=== PATIENT | female | born 1950 | race Caucasian/White ===

== ENCOUNTER 2016-10-28 20:31 | Inpatient (IN) | payer MEDICARE, OTHER ==
[2016-10-28] MEDS ORDERED: NORMAL SALINE 1000 ML 1,000 ML IV ONE (20:39)
[2016-10-28] MEDS ORDERED: CEFEPIME 2 GM/D5W RTU 50 ML IV ONE (20:39)
--- NOTE | 2016-10-28 20:56 | ER Document Report ---
ED General - General Stated Complaint: CONFUSION Time Seen by Provider: 10/28/16 20:38 Notes: Patient is a 65-year-old female with past medical history of hypertension, hyperlipidemia, diabetes, rheumatoid arthritis apparently noncompliant with all medications who presents with altered mental status, fever and tachycardia. Her found patient slumped next to the toilet still conscious but very confused. Patient states that she became lightheaded and sat down on the floor as she is concerned she was going to pass out. Per EMS initially the patient had a GCS of 14, seemed significantly altered oriented only to person. This improved after administration of IV fluids and antipyretics. Patient also apparently had malodorous urine. She does have a history of similar presentations in the past with sepsis secondary to urinary tract infections. She has not seen her primary care doctor regarding today's concerns. She does not note that anything seems to improve or worsen her symptoms. TRAVEL OUTSIDE OF THE [place] IN LAST 30 DAYS: No - Related Data Allergies/Adverse Reactions: amoxicillin trihydrate [From Augmentin] Allergy (Severe, Verified 08/04/15 08:22 ) Swelling of Throat Potassium Clavulanate * [From Augmentin] Allergy (Severe, Verified 08/04/15 08: 22) Swelling of Throat clindamycin [Clindamycin] Allergy (Intermediate, Verified 08/04/15 08:22) Hives sulfamethoxazole [From Bactrim DS] Allergy (Intermediate, Verified 08/04/15 08: 22) Generalized rash trimethoprim [From Bactrim DS] Allergy (Intermediate, Verified 08/04/15 08:22) Generalized rash lisinopril [Lisinopril] Adverse Reaction (Intermediate, Verified 08/04/15 08:22) Dizziness steri strips Allergy (Intermediate, Uncoded 08/04/15 08:22) Blisters Past Medical History - General Information source: Patient - Social History Smoking Status: Never Smoker Frequency of alcohol use: Occasional Drug Abuse: None Lives with: Spouse/Significant other Family History: Reviewed & Not Pertinent - Past Medical History Cardiac Medical History: Reports: Hx Hypercholesterolemia - meds x 4 years, Hx Hypertension - Hx of, meds x 2 months only 2011 Denies: Hx Atrial Fibrillation, Hx Congestive Heart Failure, Hx Coronary Artery Disease, Hx Heart Attack, Hx Peripheral Vascular Disease, Hx Pulmonary Embolism, Hx Heart Murmur Pulmonary Medical History: Reports: 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 Denies : Hx Graves' Disease, Hx Hyperthyroidism Renal/ Medical History: Reports: Hx Kidney Stones - multiple renal calculi 1998, "passed" denies surgical intervention. Denies: Hx End Stage Renal Disease , Hx Ovarian Cysts, Hx Peritoneal Dialysis, Hx Pelvic Inflammatory Disease Malignancy Medical History: Reports: Hx Breast Cancer - LEFT lumpectomy 03/1999 & 04/1999, LT mastectomy, sentinel node exc bx x 2. Denies: Hx Cervical Cancer , Hx Leukemia, Hx Lung Cancer, Hx Ovarian Cancer GI Medical History: Denies: Hx Crohn's Disease, Hx Gastroesophageal Reflux Disease, Hx Hiatal Hernia, Hx Irritable Bowel, Hx Liver Failure, Hx Ulcer Musculoskeltal Medical History: Reports Hx Arthritis, Denies Hx Fibromyalgia, Denies Hx Muscular Dystrophy Psychiatric Medical History: Reports: Hx Depression - meds x 13 years Denies: Hx Bipolar Disorder, Hx Post Traumatic Stress Disorder, Hx Schizophrenia Traumatic Medical History: Reports: Hx Fractures - fingers/toes/coccyx Infectious Medical History: Denies: Hx HIV Past Surgical History: Reports: Hx Mastectomy - LT May 1999, with sentinel node exc Bx x 2 and transflap reconstruction, Hx Orthopedic Surgery - right knee, Hx Tonsillectomy - and adenoidectomy. Denies: Hx Appendectomy, Hx Bowel Surgery, Hx Section, Hx Cholecystectomy, Hx Colostomy, Hx Coronary Artery Bypass Graft, Hx Gastric Bypass Surgery, Hx Herniorrhaphy, Hx Hysterectomy, Hx Pacemaker, Hx Tubal Ligation - Immunizations Immunizations up to date: Yes Hx Diphtheria, Pertussis, Tetanus Vaccination: No Hx Pneumococcal Vaccination: 05/12/09 Review of Systems - Review of Systems Notes: Constitutional: Positive for fever. HENT: Negative for sore throat. Eyes: Negative for visual changes. Cardiovascular: Negative for chest pain. Respiratory: Negative for shortness of breath. Gastrointestinal: Negative for abdominal pain, vomiting or diarrhea. Genitourinary: Negative for dysuria. Musculoskeletal: Negative for back pain. Skin: Positive for rash. Neurological: Negative for headaches, weakness or numbness. 10 point ROS negative except as marked above and in HPI. Physical Exam - Vital signs Vitals: Temp Pulse Resp BP Pulse Ox 100.2 F 107 H 21 H 151/73 H 96 10/28/16 20:51 10/28/16 20:51 10/28/16 20:51 10/28/16 20:51 10/28/16 20:51 Interpretation: Tachycardic, Febrile Notes: PHYSICAL EXAMINATION: GENERAL: Obese. Appears uncomfortable, somewhat ill HEAD: Atraumatic, normocephalic. EYES: Pupils equal round and reactive to light, extraocular movements intact, sclera anicteric, conjunctiva are normal. ENT: nares patent, oropharynx clear without exudates. Dry mucous membranes. NECK: Normal range of motion, supple without lymphadenopathy LUNGS: Breath sounds clear to auscultation bilaterally and equal. No wheezes rales or rhonchi. HEART: Regular tachycardia without murmurs ABDOMEN: Soft, nontender, normoactive bowel sounds. No guarding, no rebound. No masses appreciated. EXTREMITIES: Normal range of motion, 2+ pitting edema in the bilateral lower extremities that is equal and symmetric NEUROLOGICAL: No focal neurological deficits. Moves all extremities spontaneously and on command. PSYCH: Normal mood, normal affect. SKIN: Warm, Dry, normal turgor, spreading erythema to the distal one third of the tibial surface of the left lower extremity that also covers the dorsum of the foot consistent with an acute cellulitis Course - Re-evaluation Re-evalutation: 10/28/16 20:55 Patient presents with vitals and history consistent with sepsis likely either secondary to a left lower extremity cellulitis versus a urinary tract infection. She arrives febrile, tachycardic, somewhat ill in appearance. Cultures, lactate, labs will be obtained. She is alert he received 1 L of IV fluids from EMS and we will be starting a second liter now. She will be empirically started on IV cefepime while we await a definitive source. She will require frequent reassessments that she does meet sepsis criteria at this time. 10/28/16 23:55 Laboratories do not demonstrate a significant leukocytosis, bandemia or lactate elevation. Patient continues to clinically improve after receiving IV fluids. Urinalysis continues to be pending. Chest x-ray is negative for acute pneumonia 10/29/16 00:47 Patient's laboratories are overall unremarkable, urinalysis for evidence of infection. At this time the most probable source appears to be patient's left lower extremity cellulitis. She has been given vancomycin and cefepime. I discussed this case with Dr. Booth who will admit. - Vital Signs Vital signs: Temp Pulse Resp BP Pulse Ox 100.2 F 101 H 27 H 158/88 H 98 10/28/16 20:51 10/29/16 00:00 10/29/16 00:30 10/29/16 00:00 10/29/16 00:30 - Laboratory Result Diagrams: 10/28/16 21:30 10/28/16 21:30 Laboratory results interpreted by me: 10/28/16 10/28/16 10/28/16 21:30 21:30 21:30 Plt Count 134 L Seg Neuts % (Manual) 86 H Band Neutrophils % 8 H Lymphocytes % (Manual) 1 L Abs Lymphs (Manual) 0.1 L VBG pH 7.45 H VBG pCO2 33.7 L Sodium 135.2 L Potassium 3.2 L Carbon Dioxide 19 L Glucose 170 H Calcium 8.3 L Total Protein 6.0 L Albumin 3.3 L Urine Ketones Urine Blood Urine Nitrite Ur Leukocyte Esterase 10/28/16 23:26 Plt Count Seg Neuts % (Manual) Band Neutrophils % Lymphocytes % (Manual) Abs Lymphs (Manual) VBG pH VBG pCO2 Sodium Potassium Carbon Dioxide Glucose Calcium Total Protein Albumin Urine Ketones TRACE H Urine Blood MODERATE H Urine Nitrite POSITIVE H Ur Leukocyte Esterase TRACE H - Diagnostic Test Radiology reviewed: Image reviewed, Reports reviewed Radiology results interpreted by me: 10/28/16 23:56 Chest x-ray: No acute infiltrate Discharge - Discharge Clinical Impression: Cellulitis of leg, left Sepsis Qualifiers: Sepsis type: sepsis due to unspecified organism Qualified Code(s): A41.9 - Sepsis, unspecified organism Condition: Good Disposition: ADMITTED INPATIENT Admitting Provider: Selene Booth Unit Admitted: [facility]
--- NOTE | 2016-10-28 21:24 | RADIOLOGY REPORT (SQ) ---
EXAM DESCRIPTION: CHEST SINGLE VIEW COMPLETED DATE/TIME: 10/28/2016 9:05 pm REASON FOR STUDY: fever, ams COMPARISON: 04/13/2013 EXAM PARAMETERS: NUMBER OF VIEWS: One view. TECHNIQUE: Single frontal radiographic view of the chest acquired. RADIATION DOSE: NA LIMITATIONS: None. FINDINGS: LUNGS AND PLEURA: No acute opacities, masses or pneumothorax. No pleural effusion. MEDIASTINUM AND HILAR STRUCTURES: Stable. HEART AND VASCULAR STRUCTURES: Heart normal in size. Normal vasculature. BONES: No acute findings. HARDWARE: None in the chest. OTHER: No other significant finding. IMPRESSION: NO ACUTE RADIOGRAPHIC FINDING IN THE CHEST. TECHNICAL DOCUMENTATION: JOB ID: [id number]
[2016-10-28 21:49] LABS: VENOUS BLOOD BASE EXCESS -0.4 mmol/L; VENOUS BLOOD HCO3 22.9 mmol/L (20-32); VENOUS BLOOD PCO2 33.7 mmHg (35-63); VENOUS BLOOD PH 7.45 (7.30-7.42)
[2016-10-28 22:03] LABS: ALANINE AMINOTRANSFERASE 30 U/L (9-52); ALBUMIN 3.3 g/dL (3.5-5.0); ALKALINE PHOSPHATASE 59 U/L (38-126); ANION GAP 10 (5-19); ASPARTATE AMINO TRANSFERASE 27 U/L (14-36); BILIRUBIN,DIRECT 0.4 mg/dL (0.0-0.4); BILIRUBIN,TOTAL 0.9 mg/dL (0.2-1.3); BLOOD UREA NITROGEN 10 mg/dL (7-20); CALCIUM 8.3 mg/dL (8.4-10.2); CARBON DIOXIDE 19 mmol/L (22-30); CHLORIDE 106 mmol/L (98-107); GLUCOSE 170 mg/dL (75-110); POTASSIUM 3.2 mmol/L (3.6-5.0); SODIUM 135.2 mmol/L (137-145)
[2016-10-28 22:13] LABS: HEMATOCRIT 38.8 % (36.0-47.0); HGB HCT DIFFERENCE 0.2; MEAN CORPUSCULAR HEMOGLOBIN 30.7 pg (27.0-33.4); MEAN CORPUSCULAR HGB CONC 33.6 g/dL (32.0-36.0); MEAN CORPUSCULAR VOLUME 91 fl (80-97); RED BLOOD COUNT 4.25 10^6/uL (3.72-5.28); WHITE BLOOD COUNT 7.5 10^3/uL (4.0-10.5)
[2016-10-28 22:16] LABS: BAND NEUTROPHILS % (MANUAL) 8 % (3-5); BASOPHILS % (MANUAL) 2 % (0-2); EOSINOPHILS % (MANUAL) 0 % (0-6); LYMPHOCYTES % (MANUAL) 1 % (13-45); TOTAL CELLS COUNTED 100
[2016-10-28 22:17] LABS: RBC MORPHOLOGY COMMENT NORMO-CYTIC/CHROMIC
[2016-10-29 00:06] LABS: APPEARANCE,URINE CLEAR; BILIRUBIN,URINE NEGATIVE (NEGATIVE); GLUCOSE, URINE NEGATIVE (NEGATIVE); KETONES,URINE TRACE mg/dL (NEGATIVE); LEUKOCYTE ESTERASE,URINE TRACE (NEGATIVE); NITRITE,URINE POSITIVE (NEGATIVE); PROTEIN,URINE NEGATIVE (NEGATIVE); URINE SPECIFIC GRAVITY 1.004; UROBILINOGEN,URINE NEGATIVE mg/dL (<2.0)
[2016-10-29] MEDS ORDERED: VANCOMYCIN HCL INJ 1000 MG VIAL IV ONE (00:43)
[2016-10-29] MEDS ORDERED: VANCOMYCIN HCL INJ 1000 MG VIAL ONE ×2 (03:49→04:01)
[2016-10-29] MEDS ORDERED: DILTIAZEM HCL INJ 25 MG/5 ML VIAL IV PRN (04:16)
[2016-10-29] MEDS ORDERED: NORMAL SALINE 1000 ML 500 ML IV PRN (04:18)
[2016-10-29] MEDS ORDERED: ACETAMINOPHEN 325 MG TABLET PO PRN (04:35)
[2016-10-29] MEDS ORDERED: MAGNESIUM HYDROXIDE SUSP 30 ML UDCUP PO PRN (04:35)
[2016-10-29] MEDS ORDERED: PROMETHAZINE HCL 25 MG TABLET PO PRN (04:40)
[2016-10-29 04:43] LABS: ABSOLUTE LYMPHOCYTES (AUTO) 0.4 10^3/uL (0.5-4.7); ABSOLUTE MONOCYTES (AUTO) 0.5 10^3/uL (0.1-1.4); ABSOLUTE NEUT (AUTO) 6.6 10^3/uL (1.7-8.2); BASOPHILS % (AUTO) 0.2 % (0-2); HEMATOCRIT 40.7 % (36.0-47.0); HEMOGLOBIN 13.7 g/dL (12.0-15.5); HGB HCT DIFFERENCE 0.4; LYMPHOCYTES % (AUTO) 5.1 % (13-45); MEAN CORPUSCULAR HGB CONC 33.6 g/dL (32.0-36.0); MEAN CORPUSCULAR VOLUME 92 fl (80-97); MONOCYTES % (AUTO) 6.1 % (3-13); RED BLOOD COUNT 4.41 10^6/uL (3.72-5.28); RED CELL DISTRIBUTION WIDTH 14.5 % (11.5-14.0); SEGMENTED NEUTROPHILS % (AUTO) 88.6 % (42-78); WHITE BLOOD COUNT 7.5 10^3/uL (4.0-10.5)
[2016-10-29] MEDS ORDERED: OXYCODONE HCL IR 5 MG TABLET PO PRN (04:43)
[2016-10-29] MEDS ORDERED: POTASSIUM CHLORIDE 20 MEQ/15 ML UDCUP PO ONE (04:45)
[2016-10-29] MEDS ORDERED: VANCOMYCIN HCL 0 MG in DEXTROSE 5%-WATER 250 ML IV NR (04:45)
[2016-10-29 04:55] LABS: ANION GAP 11 (5-19); BLOOD UREA NITROGEN 10 mg/dL (7-20); CALCIUM 8.6 mg/dL (8.4-10.2); CARBON DIOXIDE 23 mmol/L (22-30); CHLORIDE 108 mmol/L (98-107); CREATININE RESULT 0.55 mg/dL (0.52-1.25); Direct HDL 62 mg/dL (>40); GLUCOSE 149 mg/dL (75-110); MAGNESIUM 1.6 mg/dL (1.6-2.3); SODIUM 142.2 mmol/L (137-145); TRIGLYCERIDES 87 mg/dL (<150)
--- NOTE | 2016-10-29 05:01 | PDOC H&P ---
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 Has not felt well for the past 36 hours or so. Slept most of the day on Friday. No nausea vomiting, diarrhea or dysuria. began having subjective fever and chills. She walked into her bathroom and felt as though she were going to pass out. She was found slumped next to the toilet, still conscious but quite confused. Initial Cunningham Coma Scale of 14 by EMS, but patient quite altered, oriented only to person. Improvement with IV fluids and antipyretics. Malodorous urine. Similar presentations in the past with sepsis secondary to urinary tract infection. noted on examination to have circumferential cellulitis involving her left lower leg. Denies any trauma. Very mildly tender to palpation. Patient stated she noted redness earlier the evening on the . No prior episodes of cellulitis. No history of atrial flutter, atrial fibrillation, or rapid irregular heartbeat. No history of pulmonary embolus or DVT. No recent long trip with prolonged inactivity, or unusual lower extremity swelling or tenderness. No chest pain. Of interest, her unverified medication list does include Xarelto, but patient states she has never taken this medication. As I was examining the patient, she began having episodes of paroxysmal atrial flutter with rapid ventricular response, with rates typically in the mid 150s but occasionally in the 160 range. Episodes lasted only a minute or so and then spontaneously reverted back to mild sinus tachycardia. Patient has been discussed with emergency room physician who evaluated the patient. . Laboratory results are listed in [facility] and are reviewed. X-ray summary results are listed below, with full report(s) reviewed. . EKGs reviewed. And compared to prior tracing from April [id number]. Social history/personal habits: . No children. Retired. No tobacco or illicit drugs. Rare alcohol use. Allergies/adverse reactions are listed in [facility] and are reviewed. No problems with cefepime in the emergency room. Home medications initially autopopulated into [facility] may not accurately reflect patient's true medications, dosages, and/or frequencies. technical clerk to reconcile medications. Unfortunately, patient not certain of all medications/dosages/frequencies. REVIEW OF SYSTEMS: Constitutional: See history and present illness. Eyes: Wears glasses. ENT: No swallowing problems or complaints. Denies hearing loss. Pulmonary: No current complaints. Cardiovascular: See history and present illness. Gastrointestinal: No current complaints, including nausea or vomiting. Skin: See history and present illness. Hematologic: Easy bruising. Neurologic: No current complaints, including numbness or tingling. Musculoskeletal: Chronic pain from osteoarthritis and rheumatoid arthritis. Psychiatric: Denies anxiety or depression. Endocrine: No current complaints, including polyuria. Genitourinary: No current complaints, including dysuria. PHYSICAL EXAMINATION: 5 feet 6 inches tall. 121.1 kg. BMI 43.1 kg/m. Blood pressure 160/83. 93% saturation on room air. Respirations are 21 and unlabored. Pulse 99, with episodes of atrial flutter with rapid ventricular response; see history and present illness. Morbidly obese somewhat chronically ill-appearing female who nevertheless appears approximately her stated age. Pleasant awake alert and cooperative. Mildly anxious, without agitation. Female emergency room nursing techn Deana is present. Emergency room nurse Tristan present. Skin is warm and dry. No grossly obvious evidence of rash in areas of skin examined. No subcutaneous nodules palpated. See comments under "extremities" below. ENT: Hearing grossly normal to normal conversation. Tongue midline on protrusion pink and slightly tacky. Eyes: No scleral icterus. Pupils equal and reactive to light at 4 mm. Kincaid conjunctivae. Neck is supple and nontender to gentle active range of motion and palpation. Midline trachea. No palpable thyroid nodule mass enlargement or tenderness. Lymphatic: No palpable cervical or clavicular nodes. Neck and lymphatic exams limited by patient body habitus. Psychiatric: Reasonable insight into acute and chronic medical issues. Oriented to time location and why here. Lungs: Auscultation reveals clear and equal breath sounds bilaterally. No use of accessory respiratory muscles. Cardiovascular: Heart regular rate and rhythm, without gallop murmur or rub; see also History and Present Illness. No carotid or abdominal aortic bruits. Mild bilateral slightly pitting ankle and pedal edema, perhaps a bit more noticeable on the dorsum of the left foot. Not sure I can palpate dorsalis pedis and posterior tibial pulses on either side due to the swelling, but toes on both feet are warm and dry with excellent capillary refill. Abdomen:soft obese nontender with positive bowel sounds. Unable to adequately evaluate abdomen for masses or organomegaly due to body habitus. Extremities: Feet are warm and dry. No right calf tenderness to compression; mild on the left.. No grossly obvious visual evidence of right calf swelling; mild on the left in the area of cellulitis.. Gentle manipulation of lower extremities fails to reveal any obvious evidence of injury or instability to knees hips or ankles. Patient has circumferential cellulitis of the left lower leg, extending from just below the knee joint through the toes. She has approximately a 3 x 6 cm area of darker discoloration on the medial aspect of the lower left lower leg. No obvious skin entrance site. No crepitus fluctuance or expressible discharge. Neurologic: Moves upper extremities grossly normally. Patellar reflexes absent. Absent Babinski. Light touch is intact at feet. Dorsiflexion and plantarflexion of feet 5 / 5 and symmetric. Past Medical History Cardiac Medical History: Reports: Hypertension Denies: Congestive Heart Failure, Coronary Artery Disease, DVT, Myocardial Infarction, Pulmonary Embolism Pulmonary Medical History: Reports: Sleep Apnea, Tuberculosis - PPD neg Mar 2013 Denies: Asthma, Chronic Obstructive Pulmonary Disease (COPD) EENT Medical History: Denies: Ears, Throat Neurological Medical History: Denies: Hemorrhagic CVA, Ischemic CVA, Seizures Endocrine Medical History: Reports: Hypothyroidism - meds x 30 years Denies: Diabetes Mellitus Type 1, Diabetes Mellitus Type 2, Hyperthyroidism Renal/ Medical History: Denies: End Stage Renal Disease Malignancy Medical History: Reports: Breast Cancer, Skin Cancer GI Medical History: Denies: Cirrhosis, Gastroesophageal Reflux Disease, Hepatitis, Peptic Ulcer Disease Musculoskeltal Medical History: Reports: Arthritis Denies: Fibromyalgia Psychiatric Medical History: Denies: Alcohol Dependency, Depression, General Anxiety Disorder, Substance Abuse, Tobacco Dependency Hematology: Reports: Anemia - autologous blood transfusion x 2 units, LT mastectomy & transflap recon Infectious Medical History: Denies: Clostridium Difficile, Hepatitis B, Hepatitis C, Methicillin- Resistant Staph Aureus Past Surgical History Past Surgical History: Reports: Mastectomy - LT May 1999, with sentinel node exc Bx x 2 and transflap reconstruction, Orthopedic Surgery - right knee, Tonsillectomy - and adenoidectomy Denies: Amputation, Appendectomy, Section, Cholecystectomy, Colostomy, Coronary Artery Bypass Graft, Gastric Bypass Surgery, Herniorrhaphy, Hysterectomy, Pacemaker, Tubal Ligation Social History Information Source: Patient, Emergency Med Personnel, [facility] Records Lives with: Spouse/Significant other Smoking Status: Never Smoker Frequency of Alcohol Use: Rare Hx Recreational Drug Use: No Drugs: None Hx Prescription Drug Abuse: No - Advance Directive Resuscitation Status: Full Code Surrogate healthcare decision maker:: Family History Family History: Reviewed & Not Pertinent Parental Family History Reviewed: Yes - Father of congestive heart failure ; mother of Alzheimer's disease Children Family History Reviewed: NA Sibling(s) Family History Reviewed.: Yes - Thyroid disease Medication/Allergy Home Medications: RX: Celecoxib [Celebrex 200 mg Capsule] 200 mg PO Q12 10/29/16 RX: Etodolac [Lodine] 400 mg PO Q8HP PRN 10/29/16 RX: Levothyroxine Sodium [Synthroid] 100 mcg PO QAM 10/29/16 RX: Tofacitinib Citrate [Xeljanz] 5 mg PO BID 10/29/16 RX: Venlafaxine HCl ER [Effexor Xr 75 mg Cap.sr] 225 mg PO DAILY 10/29/16 RX: Acetaminophen [Tylenol 325 mg Tablet] 650 mg PO Q4HP PRN tablet 11/01/16 RX: Apixaban [Eliquis 5 mg Tablet] 5 mg PO BID #60 tablet 11/01/16 RX: Diltiazem HCl [Cardizem Cd 120 mg Capsule] 120 mg PO Q12 #60 cap.sr.24h RX: Doxycycline Hyclate [Vibramycin 100 mg Tablet] 100 mg PO Q12 #20 tablet RX: Oxycodone HCl [Oxy-Ir 5 mg Tablet] 5 mg PO Q8HP PRN #20 tablet 11/01/16 RX: Triamcinolone Acetonide [Aristocort 0.5% Cream 15 gm] 1 applic TP TID tube 11/01/16 Allergies/Adverse Reactions: amoxicillin trihydrate [From Augmentin] Allergy (Severe, Verified 10/29/16 04:34 ) Swelling of Throat Potassium Clavulanate * [From Augmentin] Allergy (Severe, Verified 10/29/16 04: 34) Swelling of Throat clindamycin [Clindamycin] Allergy (Intermediate, Verified 08/04/15 08:22) Hives sulfamethoxazole [From Bactrim DS] Allergy (Intermediate, Verified 08/04/15 08: 22) Generalized rash trimethoprim [From Bactrim DS] Allergy (Intermediate, Verified 08/04/15 08:22) Generalized rash lisinopril [Lisinopril] Adverse Reaction (Intermediate, Verified 08/04/15 08:22) Dizziness steri strips Allergy (Intermediate, Uncoded 08/04/15 08:22) Blisters Physical Exam Vital Signs: Temp Pulse Resp BP Pulse Ox 100.2 F 101 H 27 H 158/88 H 98 10/28/16 20:51 10/29/16 00:00 10/29/16 00:30 10/29/16 00:00 10/29/16 00:30 Results Laboratory Results: 10/29/16 04:27 10/29/16 04:27 WBC 7.5 RBC 4.41 Hgb 13.7 Hct 40.7 MCV 92 MCH 31.0 MCHC 33.6 RDW 14.5 H Plt Count 123 L Seg Neutrophils % 88.6 H Lymphocytes % 5.1 L Monocytes % 6.1 Eosinophils % 0.0 Basophils % 0.2 Absolute Neutrophils 6.6 Absolute Lymphocytes 0.4 L Absolute Monocytes 0.5 Absolute Eosinophils 0.0 Absolute Basophils 0.0 Impressions: Chest X-Ray 10/28/16 20:39 IMPRESSION: NO ACUTE RADIOGRAPHIC FINDING IN THE CHEST. Assessment & Plan - Diagnosis (1) Hypothyroid Qualifiers: Hypothyroidism type: unspecified Qualified Code(s): E03.9 - Hypothyroidism, unspecified Is this a current diagnosis for this admission?: YesPlan: TSH level pending. Resume home medications as appropriate once these have been determined and reviewed. (2) HLD (hyperlipidemia) Qualifiers: Hyperlipidemia type: unspecified Qualified Code(s): E78.5 - Hyperlipidemia, unspecified Is this a current diagnosis for this admission?: YesPlan: Lipid panel pending. Resume home medications as appropriate once these have been determined and reviewed. (3) Hypokalemia Is this a current diagnosis for this admission?: YesPlan: Potassium supplement, with follow-up chemistry. (4) Thrombocytopenia Is this a current diagnosis for this admission?: YesPlan: Possibly due to underlying infection. Follow-up CBC with differential. (5) Osteoarthritis Qualifiers: Osteoarthritis location: unspecified site Osteoarthritis type: unspecified Qualified Code(s): M19.90 - Unspecified osteoarthritis, unspecified site Is this a current diagnosis for this admission?: YesPlan: Resume home medications as appropriate once these have been determined and reviewed. (6) Rheumatoid arthritis Qualifiers: Rheumatoid arthritis location: unspecified site Rheumatoid factor presence: unspecified presence Qualified Code(s): M06.9 - Rheumatoid arthritis, unspecified Is this a current diagnosis for this admission?: YesPlan: Resume home medications as appropriate once these have been determined and reviewed. (7) UTI (urinary tract infection) Qualifiers: Urinary tract infection type: site unspecified Is this a current diagnosis for this admission?: YesPlan: Blood and urine cultures. IV antibiotics. (8) Atrial flutter with rapid ventricular response Is this a current diagnosis for this admission?: YesPlan: D-dimer. As needed Cardizem boluses. Cardizem drip if necessary. Echocardiogram. Cardiology consult. Serial troponins. I have strongly encouraged patient not to get out of bed without notifying staff , to avoid a fall with injury. Knee high SCDs for DVT prophylaxis,, right lower extremity only due to left lower extremity cellulitis, along with subcutaneous heparin. Impression and plans were discussed with patient who concurs. Time spent in evaluation and management of patient: 75 minutes. (9) New onset atrial flutter Is this a current diagnosis for this admission?: Yes (10) Cellulitis of leg, left Is this a current diagnosis for this admission?: YesPlan: Aztreonam and intravenous vancomycin. Pharmacy to assist with dosing. - Inpatient Certification Based on my medical assessment, after consideration of the patient's comorbidities, presenting symptoms, or acuity I expect that the services needed warrant INPATIENT care.: Yes I certify that my determination is in accordance with my understanding of Medicare's requirements for reasonable and necessary INPATIENT services [42 CFR 412.3e].: Yes Medical Necessity: Need Close Monitoring Due to Risk of Patient Decompensation, Need For IV Fluids, Need For Continuous Telemetry Monitoring, Need for IV Antibiotics, Risk of Diagnosis Which Will Require Inpatient Eval/Care/Monitoring Post Hospital Care: D/C or Transfer Summary
[2016-10-29 05:05] LABS: DIRECT LDL 57 mg/dL (<100)
[2016-10-29] MEDS ORDERED: POTASSIUM CHLORIDE 20 MEQ/15 ML UDCUP PO SCH (05:30)
[2016-10-29 05:35] LABS: PROTHROMBIN TIME 15.5 SEC (11.4-15.4)
[2016-10-29 05:36] LABS: PARTIAL THROMBOPLASTIN TIME 38.1 SEC (23.5-35.8)
[2016-10-29] MEDS ORDERED: MAGNESIUM SULFATE/D5W 1 GM/100 ML RTUPB IV ONE (05:45)
[2016-10-29] MEDS ORDERED: HEPARIN SOD (PORCINE) 5,000 UNIT/ML 1 ML SYRINGE SUBCUT SCH (06:00)
--- NOTE | 2016-10-29 09:48 | RADIOLOGY REPORT (SQ) ---
EXAM DESCRIPTION: NM LUNG VENT/PERF SCAN COMPLETED DATE/TIME: 10/29/2016 9:28 am REASON FOR STUDY: elev d dimer COMPARISON: None. RADIONUCLIDE AND DOSE: 31.6 millicuries TC-99m MAA Intravenous 5.5 millicuries TC-99m DTPA Inhaled aerosol TECHNIQUE: Eight views of the lungs acquired post ventilation of DTPA aerosol. Eight matching views of the lungs acquired following injection of MAA. LIMITATIONS: None. FINDINGS: VENTILATION: Symmetric and homogeneous distribution of DTPA aerosol during ventilatory pha se. No significant areas of photopenia. PERFUSION: Perfusion images with normal homogenous activity and no wedge-shaped or segmental defects. No ventilation-perfusion mismatches. OTHER: No other significant finding. IMPRESSION: NORMAL VENTILATION-PERFUSION LUNG SCAN. NEGATIVE FOR PULMONARY EMBOLI. TECHNICAL DOCUMENTATION: JOB ID: [id number] [employer]- All Rights Reserved
[2016-10-29] MEDS ORDERED: AZTREONAM INJ 1 GM VIAL IV SCH (10:00)
--- NOTE | 2016-10-29 10:05 | PDOC CONSULTATION ---
Consultation Consult Date: 10/29/16 Attending physician:: ROSS YADAV Consult reason:: Atrial flutter History of Present Illness Admission Date/PCP: 10/29/16 04:35 Patient complains of: Near syncope History of Present Illness: 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 Has not felt well for the past 36 hours or so. Slept most of the day on Friday. No nausea vomiting, diarrhea or dysuria. It began having subjective fever and chills. She walked into her bathroom, he felt as though she was going to pass out. She was found slumped next to the toilet, still conscious but quite confused. Initial [place] Coma Scale of 14 by EMS, but patient quite altered, oriented only to person. Improvement with IV fluids and antipyretics. Malodorous urine. Similar presentations in the past with sepsis secondary to urinary tract infection. Prior was noted on examination to have circumferential cellulitis involving her left lower leg. Denies any trauma. Very mildly tender to palpation. Patient stated she noted redness only earlier in the evening on the . No prior episodes of cellulitis. No prior history of atrial flutter, atrial fibrillation, or rapid irregular heartbeat. No history of pulmonary embolus or DVT. No recent long trip with prolonged inactivity, or unusual lower extremity swelling or tenderness. No chest pain. Of interest, her unverified medication list does include Xarelto, but patient states she has never taken this medication. Patient began having episodes of paroxysmal atrial flutter with rapid ventricular response, noted on EKG, with rates typically in the mid 150s but occasionally in the 160 range. Lasted only a minute or so and then spontaneously reverted back to mild sinus tachycardia. 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, Sleep Apnea - CPAP at home [facility] Denies: Asthma, Chronic Obstructive Pulmonary Disease (COPD), Pneumonia, Respiratory Failure, Tuberculosis - PPD neg Mar 2013 Endocrine Medical History: Reports: Hypothyroidism - meds x 30 years Denies: Hyperthyroidism Renal/ Medical History: Denies: End Stage Renal Disease Malignancy Medical History: Reports: Breast Cancer - LEFT lumpectomy 03/1999 & 04/1999, LT mastectomy, sentinel node exc bx x 2 Denies: Cervical Cancer, Leukemia, Lung Cancer, Ovarian Cancer GI Medical History: Denies: Crohn's Disease, Gastroesophageal Reflux Disease, Hiatal Hernia Musculoskeltal Medical History: Reports: Arthritis Denies: Fibromyalgia Psychiatric Medical History: Reports: Depression - meds x 13 years Denies: Bipolar Disorder, Post Traumatic Stress Disorder Hematology: Reports: Anemia - autologous blood transfusion x 2 units, LT mastectomy & transflap recon Denies: Hemophilia, Sickle Cell Disease Infectious Medical History: Denies: HIV Past Surgical History Past Surgical History: Reports: Mastectomy - LT May 1999, with sentinel node exc Bx x 2 and transflap reconstruction, Orthopedic Surgery - right knee, Tonsillectomy - and adenoidectomy Denies: Amputation, Appendectomy, Section, Cholecystectomy, Colostomy, Coronary Artery Bypass Graft, Gastric Bypass Surgery, Herniorrhaphy, Hysterectomy, Pacemaker, Tubal Ligation Social History Information Source: Patient Lives with: Spouse/Significant other Smoking Status: Never Smoker Frequency of Alcohol Use: Rare Hx Recreational Drug Use: No Drugs: None Hx Prescription Drug Abuse: No - Advance Directive Resuscitation Status: Full Code Surrogate healthcare decision maker:: Pts Family History Family History: Hypertension Parental Family History Reviewed: Yes Children Family History Reviewed: Yes Sibling(s) Family History Reviewed.: Yes Medication/Allergy Allergies/Adverse Reactions: amoxicillin trihydrate [From Augmentin] Allergy (Severe, Verified 10/29/16 04:34 ) Swelling of Throat Potassium Clavulanate * [From Augmentin] Allergy (Severe, Verified 10/29/16 04: 34) Swelling of Throat clindamycin [Clindamycin] Allergy (Intermediate, Verified 08/04/15 08:22) Hives sulfamethoxazole [From Bactrim DS] Allergy (Intermediate, Verified 08/04/15 08: 22) Generalized rash trimethoprim [From Bactrim DS] Allergy (Intermediate, Verified 08/04/15 08:22) Generalized rash lisinopril [Lisinopril] Adverse Reaction (Intermediate, Verified 08/04/15 08:22) Dizziness steri strips Allergy (Intermediate, Uncoded 08/04/15 08:22) Blisters Review of Systems Constitutional: PRESENT: chills, fever(s), weight gain. ABSENT: headache(s), weight loss Eyes: ABSENT: visual disturbances Ears: ABSENT: hearing changes Cardiovascular: PRESENT: dyspnea on exertion, edema, palpitations. ABSENT: chest pain, orthropnea Respiratory: PRESENT: dyspnea. ABSENT: cough, hemoptysis Gastrointestinal: ABSENT: abdominal pain, constipation, diarrhea, hematemesis, hematochezia, nausea, vomiting Genitourinary: ABSENT: dysuria, hematuria Musculoskeletal: PRESENT: back pain, joint swelling - recurrent joint pains, other - recurrent joint pains Integumentary: PRESENT: rash. ABSENT: wounds Neurological: ABSENT: abnormal gait, abnormal speech, confusion, dizziness, focal weakness, syncope Psychiatric: ABSENT: anxiety, depression, homidical ideation, suicidal ideation Endocrine: ABSENT: cold intolerance, heat intolerance, polydipsia, polyuria Hematologic/Lymphatic: ABSENT: easy bleeding, easy bruising Physical Exam Vital Signs: Temp Pulse Resp BP Pulse Ox 100.2 F 101 H 27 H 158/88 H 98 10/28/16 20:51 10/29/16 00:00 10/29/16 00:30 10/29/16 00:00 10/29/16 00:30 General appearance: PRESENT: no acute distress, well-developed, well-nourished Head exam: PRESENT: atraumatic, normocephalic Eye exam: PRESENT: conjunctiva pink, EOMI, PERRLA. ABSENT: scleral icterus Ear exam: PRESENT: normal external ear exam Mouth exam: PRESENT: moist, tongue midline Neck exam: ABSENT: carotid bruit, JVD, lymphadenopathy, thyromegaly Respiratory exam: PRESENT: clear to auscultation troy. ABSENT: rales, rhonchi, wheezes Cardiovascular exam: PRESENT: RRR, +S1, +S2, systolic murmur - 2/6 JOAN base of heart. ABSENT: diastolic murmur, rubs Pulses: PRESENT: normal dorsalis pedis pul Vascular exam: PRESENT: normal capillary refill GI/Abdominal exam: PRESENT: normal bowel sounds, soft. ABSENT: distended, guarding, mass, organolmegaly, rebound, tenderness Rectal exam: PRESENT: deferred Extremities exam: PRESENT: full ROM. ABSENT: calf tenderness, clubbing, pedal edema Musculoskeletal exam: PRESENT: normal inspection, other - H/o RA Neurological exam: PRESENT: alert, awake, oriented to person, oriented to place , oriented to time, oriented to situation, CN II-XII grossly intact. ABSENT: motor sensory deficit Psychiatric exam: PRESENT: appropriate affect, normal mood. ABSENT: homicidal ideation, suicidal ideation Skin exam: PRESENT: dry, intact, rash - Patient has circumferential cellulitis of the left lower leg, extending from just below the knee joint through the toes. She has approximately a 3 x 6 cm area of darker discoloration on the medial aspect of the lower left lower leg., warm. ABSENT: cyanosis Results EKG Comments: A Flutter with 2:1 conduction Impressions: Chest X-Ray 10/28/16 20:39 IMPRESSION: NO ACUTE RADIOGRAPHIC FINDING IN THE CHEST. Assessment & Plan - Diagnosis (1) Atrial flutter with rapid ventricular response Is this a current diagnosis for this admission?: Yes (2) Cellulitis of leg, left Is this a current diagnosis for this admission?: Yes (3) UTI (urinary tract infection) Qualifiers: Urinary tract infection type: site unspecified Is this a current diagnosis for this admission?: Yes (4) Morbid obesity with BMI of 40.0-44.9, adult Is this a current diagnosis for this admission?: Yes (5) ARNULFO (obstructive sleep apnea) Is this a current diagnosis for this admission?: Yes - Notes Notes: 2D echo ordered. Started patient on Cardizem CD 120 mg p.o. twice daily. 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 Twelve-lead EKG, these were reviewed. Chest x-ray: Results reviewed. Medications: These were reviewed. Labs: These were reviewed. Treatment/care plan: This was reviewed and discussed with involved personnel in the care of this patient and patient. Atrial flutter with rapid ventricular response: This is paroxysmal. Have started patient on Cardizem 120 mg p.o. twice daily. Have also placed patient on Eliquis 5 mg p.o. twice daily. Have ordered a 2D echocardiogram. These results are pending. Cellulitis of the left leg: Continue antibiotic therapy. Urinary tract infection: Continue antibiotic therapy. Obesity: Patient has been encouraged in weight loss. Obstructive sleep apnea: Discussed association of atrial flutter fibrillation with obstructive sleep apnea. Patient encouraged to have her bring CPAP machine and use it on a nightly basis while in the hospital. - Time Time Spent: 50 to 70 Minutes - CODE STATUS was discussed, patient remains full code. Surrogate decision-maker patient's . Multiple medical problems were addressed. More than 50% of the time spent coordinating care, discussing management plans with involved caregivers. Management plans discussed with involved personnels. Medical decision making was of moderate to high complexity , patient's has multiple comorbidities. Medications reviewed and adjusted accordingly: Yes
[2016-10-29] MEDS ORDERED: DILTIAZEM HCL 120 MG CAP.SR.24H PO ONE (11:30)
--- NOTE | 2016-10-29 12:42 | EKG REPORT ---
SEVERITY:- OTHERWISE NORMAL ECG - SINUS TACHYCARDIA : Confirmed by: Ree Subramanian MD 29-Oct-2016 12:41:44
--- NOTE | 2016-10-29 12:42 | EKG REPORT ---
SEVERITY:- ABNORMAL ECG - A-FLUTTER W/ PREDOM 2:1 AV BLOCK, A-RATE 312 REPOLARIZATION ABNORMALITY, PROB RATE RELATED : Confirmed by: Ree Subramanian MD 29-Oct-2016 12:41:40
[2016-10-29] MEDS: DOCUSATE SODIUM 100 MG CAPSULE PO SCH ×2 (14:27→18:48)
[2016-10-29] MEDS ORDERED: DILTIAZEM HCL INJ 25 MG/5 ML VIAL IV ONE (17:49)
[2016-10-29] MEDS: DILTIAZEM HCL/D5W 125 ML IV PRN ×2 (17:58→18:42)
[2016-10-29] MEDS ORDERED: (PENDING PHARMACY ID) (Tofacitinib Citrate [Xeljanz] 5 MG) PO SCH (18:00)
[2016-10-29] MEDS ORDERED: APIXABAN 2.5 MG TABLET PO SCH (18:00)
[2016-10-29] MEDS: APIXABAN 5 MG TABLET PO SCH (18:45)
[2016-10-29] MEDS: LEVOFLOXACIN 750 MG/D5W RTU 750 MG/150 ML RTUPB IV SCH (18:46)
--- NOTE | 2016-10-29 18:53 | XCELERA REPORT ---
[address] [address] Transthoracic Echocardiogram Report Name: PASCUAL BREWSTER Age: 65 yrs Gender: Female : 1950 Patient Status: Inpatient Patient Location: \S\[facility]\S\A Study Date: 10/29/2016 09:44 AM Height: 66 in Weight: 267 lb BSA: 2.3 m2 Procedure: A complete two-dimensional transthoracic echocardiogram was performed (2D, M-mode, spectral and color flow Doppler). The study was technically difficult with many images being suboptimal in quality. Reason For Study: new aflutter rvr Ordering Physician: ROSS YADAV Performed By: Fiona Jay Interpretation Summary The study was technically difficult with many images being suboptimal in quality. The left ventricular ejection fraction is preserved. There is mild concentric left ventricular hypertrophy. The left ventricle is grossly normal size. LV diastolic function could not be adequately assessed. Regional wall motion abnormalities cannot be excluded due to limited visualization. Right ventricular function cannot be assessed due to poor image quality. The right ventricle is mildly dilated. The right atrium is normal in size Borderline left atrial enlargement. There is a trace amount of mitral regurgitation There is no mitral valve stenosis. There is no aortic valve stenosis No aortic regurgitation is present. Tricuspid regurgitation jet envelope not well defined to measure RV systolic pressure accurately. The aortic root is not well visualized. The inferior vena cava was not well visualized There is no pericardial effusion. MMode/2D Measurements \T\ Calculations RVDd: 2.5 cm LVIDd: 4.7 cmFS: 39.0 % Ao root diam: 3.6 cm IVSd: 1.2 cm LVIDs: 2.9 cmEDV(Teich): 101.6 ml LVPWd: 1.2 cmESV(Teich): 31.1 ml Ao root area: 9.9 cm2 EF(Teich): 69.4 % LA dimension: 3.6 cm LVOT diam: 2.3 cm LVOT area: 4.3 cm2 Doppler Measurements \T\ Calculations MV E max brenda: MV P1/2t max brenda: Ao V2 max: LV V1 max P.8 cm/sec 92.8 cm/sec 121.5 cm/sec 5.4 mmHg MV A max brenda: MV P1/2t: 46.9 msec Ao max PG: LV V1 max: 81.9 cm/sec MVA(P1/2t): 4.7 cm2 5.9 mmHg 116.0 cm/sec MV E/A: 1.1 MV dec slope: ANKUR(V,D): 4.1 cm2 579.8 cm/sec2 PA V2 max: 86.4 cm/sec PA max P.0 mmHg Left Ventricle The left ventricle is grossly normal size. There is mild concentric left ventricular hypertrophy. The left ventricular ejection fraction is preserved. LV diastolic function could not be adequately assessed. Regional wall motion abnormalities cannot be excluded due to limited visualization. Right Ventricle The right ventricle is mildly dilated. Right ventricular function cannot be assessed due to poor image quality. Atria The right atrium is normal in size. Borderline left atrial enlargement. Interarterial septum not well visualized and not well dopplered. Cannot comment on ASD/PFO presence. Mitral Valve The mitral valve is not well visualized. There is no mitral valve stenosis. There is a trace amount of mitral regurgitation. Aortic Valve The aortic valve is not well visualized secondary to technical limitations. There is no aortic valve stenosis. No aortic regurgitation is present. Tricuspid Valve The tricuspid valve is not well visualized secondary to technical limitations. There is no tricuspid stenosis. There is a trace or physiologic amount of tricuspid regurgitation. Tricuspid regurgitation jet envelope not well defined to measure RV systolic pressure accurately. Pulmonic Valve The pulmonic valve is not well visualized. Great Vessels The aortic root is not well visualized. The inferior vena cava was not well visualized. Effusions There is no pericardial effusion. : ROSS YADAV > Jony Barbosa
[2016-10-29] MEDS: VANCOMYCIN HCL 1,250 MG in DEXTROSE 5%-WATER 250 ML IV SCH (21:49)
[2016-10-29] MEDS: DILTIAZEM HCL 120 MG CAP.SR.24H PO SCH (21:49)
[2016-10-30] MEDS: DILTIAZEM HCL/D5W 125 ML IV PRN (05:12)
[2016-10-30 06:48] LABS: ABSOLUTE LYMPHOCYTES (AUTO) 0.8 10^3/uL (0.5-4.7); ABSOLUTE MONOCYTES (AUTO) 0.6 10^3/uL (0.1-1.4); ABSOLUTE NEUT (AUTO) 4.4 10^3/uL (1.7-8.2); BASOPHILS % (AUTO) 0.1 % (0-2); EOSINOPHILS % (AUTO) 0.3 % (0-6); HEMATOCRIT 35.9 % (36.0-47.0); HEMOGLOBIN 12.2 g/dL (12.0-15.5); HGB HCT DIFFERENCE 0.7; LYMPHOCYTES % (AUTO) 13.1 % (13-45); MEAN CORPUSCULAR HEMOGLOBIN 30.9 pg (27.0-33.4); MEAN CORPUSCULAR HGB CONC 33.9 g/dL (32.0-36.0); MEAN CORPUSCULAR VOLUME 91 fl (80-97); MONOCYTES % (AUTO) 9.6 % (3-13); RED BLOOD COUNT 3.94 10^6/uL (3.72-5.28); RED CELL DISTRIBUTION WIDTH 14.2 % (11.5-14.0); SEGMENTED NEUTROPHILS % (AUTO) 76.9 % (42-78); WHITE BLOOD COUNT 5.8 10^3/uL (4.0-10.5)
[2016-10-30 06:57] LABS: ANION GAP 9 (5-19); BLOOD UREA NITROGEN 8 mg/dL (7-20); CALCIUM 8.4 mg/dL (8.4-10.2); CARBON DIOXIDE 25 mmol/L (22-30); CHLORIDE 108 mmol/L (98-107); GLUCOSE 106 mg/dL (75-110); POTASSIUM 3.7 mmol/L (3.6-5.0)
--- NOTE | 2016-10-30 08:40 | EKG REPORT ---
SEVERITY:- ABNORMAL ECG - SINUS RHYTHM VENTRICULAR PREMATURE COMPLEX CONSIDER POSTERIOR INFARCT BORDERLINE T ABNORMALITIES, ANT-LAT LEADS : Confirmed by: Ree Subramanian MD 30-Oct-2016 08:39:19
[2016-10-30] MEDS: LEVOTHYROXINE SODIUM 0.1 MG TABLET PO SCH (09:00)
[2016-10-30] MEDS: MAGNESIUM OXIDE 400 MG TABLET PO SCH ×3 (09:00→17:04)
[2016-10-30] MEDS: APIXABAN 5 MG TABLET PO SCH ×2 (09:27→17:04)
[2016-10-30] MEDS: VENLAFAXINE HCL 75 MG CAP.SR.24H PO SCH (09:27)
[2016-10-30] MEDS: DOCUSATE SODIUM 100 MG CAPSULE PO SCH ×2 (09:28→17:04)
[2016-10-30] MEDS: VANCOMYCIN HCL 1,250 MG in DEXTROSE 5%-WATER 250 ML IV SCH ×2 (09:29→21:14)
[2016-10-30] MEDS: DILTIAZEM HCL 120 MG CAP.SR.24H PO SCH ×2 (09:37→21:14)
[2016-10-30] MEDS: ALPRAZOLAM 0.5 MG TABLET PO PRN ×2 (09:37→17:57)
--- NOTE | 2016-10-30 14:45 | Physician Advisory Note ---
Physician Advisor ProgressNote .: Pursuant to the plan for [facility], I have reviewed the medical record for this patient. Physician Advisor Statement: Please consider documentin. Do you think pt had "possible sepsis due to __ present on adm", or not? - Came in w/fevers, tachycardia, tachypnea up to 30, O2 sat listed as low as 85% ... - if you don't think pt had sepsis, please just state that, so coders don't have to query your thoughts after d/c. 2. "Acute hyponatremia, suspect due to ___" Thanks! CK
--- NOTE | 2016-10-30 16:58 | PDOC PROGRESS REPORT ---
Subjective Progress Note for:: 10/30/16 Subjective:: Patient is seen on morning rounds. She is resting comfortably in bed. She denies any shortness of breath, palpitations or dyspnea. She denies any chest pain. She denies any cough at the present time. She states she feels improved from when she came in. She does complain of mild discomfort in the left lower extremity which remains erythemic and warm to the touch. She feels it looks improved however did yesterday morning. She denies any fevers or chills overnight. Physical Exam Vital Signs: Temp Pulse Resp BP Pulse Ox 98.5 F 80 16 128/62 H 94 10/30/16 07:56 10/30/16 07:56 10/30/16 07:56 10/30/16 08:02 10/30/16 07:56 Intake & Output 10/29/16 10/30/16 10/31/16 06:59 06:59 06:59 Intake Total 2200 Balance 2200 Weight 123.1 kg General appearance: PRESENT: no acute distress, morbidly obese, well-developed, well-nourished Head exam: PRESENT: atraumatic, normocephalic Eye exam: PRESENT: conjunctiva pink, EOMI, PERRLA. ABSENT: scleral icterus Ear exam: PRESENT: normal external ear exam Mouth exam: PRESENT: moist, tongue midline Neck exam: ABSENT: carotid bruit, JVD, lymphadenopathy, thyromegaly Respiratory exam: PRESENT: clear to auscultation troy. ABSENT: rales, rhonchi, wheezes Cardiovascular exam: PRESENT: RRR. ABSENT: diastolic murmur, rubs, systolic murmur Pulses: PRESENT: normal dorsalis pedis pul Vascular exam: PRESENT: normal capillary refill GI/Abdominal exam: PRESENT: normal bowel sounds, soft. ABSENT: distended, guarding, mass, organolmegaly, rebound, tenderness Rectal exam: PRESENT: deferred Extremities exam: PRESENT: full ROM. ABSENT: calf tenderness, clubbing, pedal edema Neurological exam: PRESENT: alert, awake, oriented to person, oriented to place , oriented to time, oriented to situation, CN II-XII grossly intact. ABSENT: motor sensory deficit Psychiatric exam: PRESENT: appropriate affect, normal mood. ABSENT: homicidal ideation, suicidal ideation Skin exam: PRESENT: dry, intact, warm. ABSENT: cyanosis, rash Results Laboratory Results: 10/30/16 06:00 10/30/16 06:00 10/30/16 10/30/16 06:00 06:00 WBC 5.8 RBC 3.94 Hgb 12.2 Hct 35.9 L MCV 91 MCH 30.9 MCHC 33.9 RDW 14.2 H Plt Count 135 L Seg Neutrophils % 76.9 Lymphocytes % 13.1 Monocytes % 9.6 Eosinophils % 0.3 Basophils % 0.1 Absolute Neutrophils 4.4 Absolute Lymphocytes 0.8 Absolute Monocytes 0.6 Absolute Eosinophils 0.0 Absolute Basophils 0.0 Sodium 142.0 Potassium 3.7 Chloride 108 H Carbon Dioxide 25 Anion Gap 9 BUN 8 Creatinine 0.60 Est GFR ( Amer) > 60 Est GFR (Non-Af Amer) > 60 Glucose 106 Calcium 8.4 Magnesium 2.0 10/29/16 10/29/16 12:08 17:41 Troponin I 0.069 0.057 Impressions: Chest X-Ray 10/28/16 20:39 IMPRESSION: NO ACUTE RADIOGRAPHIC FINDING IN THE CHEST. Lung Scan-VQ NM 10/29/16 05:15 IMPRESSION: NORMAL VENTILATION-PERFUSION LUNG SCAN. NEGATIVE FOR PULMONARY EMBOLI. Assessment & Plan - Diagnosis (1) SIRS (systemic inflammatory response syndrome) Is this a current diagnosis for this admission?: YesPlan: Patient with low-grade fever on admission, tachycardia and confusion. This improved with IV fluids and IV antibiotics. She was found to have a urinary tract infection as well as left lower leg extensive cellulitis. (2) Atrial flutter with rapid ventricular response Is this a current diagnosis for this admission?: YesPlan: Patient is rate controlled with IV diltiazem. (3) Cellulitis of leg, left Is this a current diagnosis for this admission?: YesPlan: Improved from yesterday. Cultures pending will continue current IV antibitiotics (4) Hypokalemia Is this a current diagnosis for this admission?: YesPlan: Replete as needed (5) New onset atrial flutter Is this a current diagnosis for this admission?: YesPlan: Cardiology is following she is on diltiazem (6) ARNULFO (obstructive sleep apnea) Is this a current diagnosis for this admission?: YesPlan: CPAP at night (7) UTI (urinary tract infection) Qualifiers: Urinary tract infection type: site unspecified Is this a current diagnosis for this admission?: YesPlan: Continue antibiotics culture pending (8) HLD (hyperlipidemia) Qualifiers: Hyperlipidemia type: unspecified Qualified Code(s): E78.5 - Hyperlipidemia, unspecified Is this a current diagnosis for this admission?: YesPlan: Continue statin (9) Hypothyroid Qualifiers: Hypothyroidism type: unspecified Qualified Code(s): E03.9 - Hypothyroidism, unspecified Is this a current diagnosis for this admission?: YesPlan: Continue synthroid (10) Morbid obesity with BMI of 40.0-44.9, adult Is this a current diagnosis for this admission?: Yes (11) Osteoarthritis Qualifiers: Osteoarthritis location: unspecified site Osteoarthritis type: unspecified Qualified Code(s): M19.90 - Unspecified osteoarthritis, unspecified site Is this a current diagnosis for this admission?: Yes - Time Time Spent with patient: 25-34 minutes Critical Time spent with patient: 15-24 minutes Medications reviewed and adjusted accordingly: Yes Anticipated discharge: Home with Homehealth
[2016-10-30] MEDS: LEVOFLOXACIN 750 MG/D5W RTU 750 MG/150 ML RTUPB IV SCH (17:04)
[2016-10-31] MEDS: VANCOMYCIN HCL 1,250 MG in DEXTROSE 5%-WATER 250 ML IV SCH (10:16)
[2016-10-31] MEDS: VENLAFAXINE HCL 75 MG CAP.SR.24H PO SCH (10:19)
[2016-10-31] MEDS: APIXABAN 5 MG TABLET PO SCH ×2 (10:20→18:29)
[2016-10-31] MEDS: LEVOTHYROXINE SODIUM 0.1 MG TABLET PO SCH (10:21)
[2016-10-31] MEDS: MAGNESIUM OXIDE 400 MG TABLET PO SCH ×3 (10:22→18:28)
[2016-10-31] MEDS: DILTIAZEM HCL 120 MG CAP.SR.24H PO SCH ×2 (10:22→21:58)
[2016-10-31] MEDS: DOCUSATE SODIUM 100 MG CAPSULE PO SCH ×2 (10:23→18:29)
[2016-10-31 10:27] LABS: CREATININE RESULT 0.53 mg/dL (0.52-1.25)
[2016-10-31] MEDS: TRIAMCINOLONE ACETONIDE 0.5% CREAM 15 GM TP SCH ×3 (10:33→18:34)
--- NOTE | 2016-10-31 11:25 | PDOC PROGRESS REPORT ---
Subjective Progress Note for:: 10/30/16 Subjective:: Patient seems to be doing better with significant improvement. Pt is denying any chest arm or neck discomfort. Patient denying any PND, orthopnea. Patient denied any sustained palpitations, dizziness, syncope, near syncope. Patient denying any fever chills. Patient denying any other significant discomfort. Patient is maintaining sinus rhythm. Patient was noted to have converted to sinus rhythm and is maintaining sinus rhythm. Review of systems: Rest review of systems negative. Medications: Medications have been reviewed. Patient noted to be in sinus rhythm Physical Exam Vital Signs: Temp Pulse Resp BP Pulse Ox 98.4 F 80 18 147/65 H 96 10/30/16 14:50 10/30/16 14:50 10/30/16 14:50 10/30/16 14:50 10/30/16 14:50 Intake & Output 10/29/16 10/30/16 10/31/16 06:59 06:59 06:59 Intake Total 2200 1345 Balance 2200 1345 Weight 123.1 kg Exam: GENERAL: well-nourished and in no acute distress. Alert and oriented x3 HEAD: Atraumatic, normocephalic. EYES: Pupils equal round and reactive to light, extraocular movements intact, sclera anicteric, conjunctiva are normal. ENT: TMs normal, nares patent, oropharynx clear without exudates. Moist mucous membranes. No oral ulcerations or bleeding gums noted NECK: supple without lymphadenopathy. Trachea is central. No cervical or axillary lymphadenopathy noted. Carotids are 2+, JVD WNL LUNGS: Respiration seems nonlabored, no significant accessory muscle action noted. Breath sounds clear to auscultation bilaterally and equal noted. No wheezes rales or rhonchi noted. No significant dullness noted on percussion. CHEST: Palpation of the chest wall shows no significant chest wall tenderness. No other significant abnormalities noted. 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 ABDOMEN: Soft, no significant tenderness appreciated, normoactive bowel sounds. No guarding, no rebound. No rigidity noted . No masses appreciated. EXTREMITIES: Pedal pulses are 1-2+, no calf tenderness noted. No clubbing or cyanosis. 1+ pedal edema noted NEUROLOGICAL: Focused neurological exam showed no significant neurologic deficit. Normal speech, no focal weakness appreciated. PSYCH: Normal mood, normal affect. Judgment and insight within normal limits. SKIN: No significant ecchymosis, ulcerations or signs of pruritus noted. Erythematous rash noted left lower leg consistent with cellulitis. MUSCULOSKELETAL EXAM: No significant joint swelling noted. Results Laboratory Results: 10/30/16 06:00 10/30/16 06:00 10/30/16 10/30/16 06:00 06:00 WBC 5.8 RBC 3.94 Hgb 12.2 Hct 35.9 L MCV 91 MCH 30.9 MCHC 33.9 RDW 14.2 H Plt Count 135 L Seg Neutrophils % 76.9 Lymphocytes % 13.1 Monocytes % 9.6 Eosinophils % 0.3 Basophils % 0.1 Absolute Neutrophils 4.4 Absolute Lymphocytes 0.8 Absolute Monocytes 0.6 Absolute Eosinophils 0.0 Absolute Basophils 0.0 Sodium 142.0 Potassium 3.7 Chloride 108 H Carbon Dioxide 25 Anion Gap 9 BUN 8 Creatinine 0.60 Est GFR ( Amer) > 60 Est GFR (Non-Af Amer) > 60 Glucose 106 Calcium 8.4 Magnesium 2.0 10/29/16 10/29/16 12:08 17:41 Troponin I 0.069 0.057 EKG Comments: Twelve-lead EKG from yesterday shows sinus rhythm, with mild sinus tachycardia and minor nonspecific ST segment changes. Impressions: Chest X-Ray 10/28/16 20:39 IMPRESSION: NO ACUTE RADIOGRAPHIC FINDING IN THE CHEST. Lung Scan-VQ NM 10/29/16 05:15 IMPRESSION: NORMAL VENTILATION-PERFUSION LUNG SCAN. NEGATIVE FOR PULMONARY EMBOLI. Status: Image reviewed by me - 2D echo reviewed and results discussed. Assessment & Plan - Diagnosis (1) Atrial flutter with rapid ventricular response Is this a current diagnosis for this admission?: Yes (2) Cellulitis of leg, left Is this a current diagnosis for this admission?: Yes (3) UTI (urinary tract infection) Qualifiers: Urinary tract infection type: site unspecified Is this a current diagnosis for this admission?: Yes (4) Morbid obesity with BMI of 40.0-44.9, adult Is this a current diagnosis for this admission?: Yes (5) ARNULFO (obstructive sleep apnea) Is this a current diagnosis for this admission?: Yes - Notes Notes: 2D echo results were reviewed. Started patient yesterday on Cardizem CD 120 mg p.o. twice daily, which patient seems to be tolerating well.. Recommend chronic anticoagulation, chronic anticoagulation started patient seems to be tolerating this well. vocational counselor, this was reviewed. Twelve-lead EKG, these were reviewed. Chest x-ray: Results reviewed. Medications: These were reviewed. Labs: These were reviewed. Treatment/care plan: This was reviewed and discussed with involved personnel in the care of this patient and patient. Atrial flutter with rapid ventricular response: Currently maintaining sinus rhythm. Patient tolerating Cardizem 120 mg p.o. twice daily. Patient tolerating Eliquis 5 mg p.o. twice daily. Results discussed 2D echocardiogram. Patient questions were answered.. Cellulitis of the left leg: Continue antibiotic therapy. Improving Urinary tract infection: Continue antibiotic therapy. Improving Obesity: Patient has been encouraged in weight loss. Obstructive sleep apnea: Discussed association of atrial flutter fibrillation with obstructive sleep apnea. Patient encouraged compliance with CPAP therapy. - Time Time with patient: Greater than 35 minutes - CODE STATUS was discussed, patient remains full code. Surrogate decision-maker unchanged. Multiple medical problems were addressed. More than 50% of the time spent coordinating care, discussing management plans with involved caregivers. Management plans discussed with involved personnels. Medical decision making was of moderate to high complexity, patient's has multiple comorbidities. Medications reviewed and adjusted accordingly: Yes
--- NOTE | 2016-10-31 11:27 | PDOC PROGRESS REPORT ---
Subjective Progress Note for:: 10/31/16 Subjective:: Patient seems to be doing better with significant improvement. Pt is denying any chest arm or neck discomfort. Patient denying any PND, orthopnea. Patient denied any sustained palpitations, dizziness, syncope, near syncope. Patient denying any fever chills. Patient denying any other significant discomfort. Patient is maintaining sinus rhythm. Review of systems: Rest review of systems negative. Medications: Medications have been reviewed. Physical Exam Vital Signs: Temp Pulse Resp BP Pulse Ox 98.3 F 74 16 123/62 96 10/31/16 10:56 10/31/16 10:57 10/31/16 10:56 10/31/16 10:56 10/31/16 10:56 Intake & Output 10/30/16 10/31/16 11/01/16 06:59 06:59 06:59 Intake Total 2200 2545 Balance 2200 2545 Weight 123.1 kg 126.4 kg Exam: GENERAL: well-nourished and in no acute distress. Alert and oriented x3 HEAD: Atraumatic, normocephalic. EYES: Pupils equal round and reactive to light, extraocular movements intact, sclera anicteric, conjunctiva are normal. ENT: TMs normal, nares patent, oropharynx clear without exudates. Moist mucous membranes. No oral ulcerations or bleeding gums noted NECK: supple without lymphadenopathy. Trachea is central. No cervical or axillary lymphadenopathy noted. Carotids are 2+, JVD WNL LUNGS: Respiration seems nonlabored, no significant accessory muscle action noted. Breath sounds clear to auscultation bilaterally and equal noted. No wheezes rales or rhonchi noted. No significant dullness noted on percussion. CHEST: Palpation of the chest wall shows no significant chest wall tenderness. No other significant abnormalities noted. 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 ABDOMEN: Soft, no significant tenderness appreciated, normoactive bowel sounds. No guarding, no rebound. No rigidity noted . No masses appreciated. EXTREMITIES: Pedal pulses are 1-2+, no calf tenderness noted. No clubbing or cyanosis.trace to 1+ pedal edema noted NEUROLOGICAL: Focused neurological exam showed no significant neurologic deficit. Normal speech, no focal weakness appreciated. PSYCH: Normal mood, normal affect. Judgment and insight within normal limits. SKIN: No significant ecchymosis, delete that erythematous rash consistent with cellulitis noted left lower leg, this has improved.. MUSCULOSKELETAL EXAM: No significant joint swelling noted. Results Laboratory Results: 10/30/16 06:00 10/31/16 09:45 10/31/16 09:45 Creatinine 0.53 Est GFR ( Amer) > 60 Est GFR (Non-Af Amer) > 60 10/29/16 10/29/16 12:08 17:41 Troponin I 0.069 0.057 Impressions: Chest X-Ray 10/28/16 20:39 IMPRESSION: NO ACUTE RADIOGRAPHIC FINDING IN THE CHEST. Lung Scan-VQ NM 10/29/16 05:15 IMPRESSION: NORMAL VENTILATION-PERFUSION LUNG SCAN. NEGATIVE FOR PULMONARY EMBOLI. Assessment & Plan - Diagnosis (1) Atrial flutter with rapid ventricular response Is this a current diagnosis for this admission?: Yes (2) Cellulitis of leg, left Is this a current diagnosis for this admission?: Yes (3) UTI (urinary tract infection) Qualifiers: Urinary tract infection type: site unspecified Is this a current diagnosis for this admission?: Yes (4) Morbid obesity with BMI of 40.0-44.9, adult Is this a current diagnosis for this admission?: Yes (5) ARNULFO (obstructive sleep apnea) Is this a current diagnosis for this admission?: Yes - Notes Notes: 2D echo ordered. burr grinder, this was reviewed. Twelve-lead EKG, these were reviewed. Chest x-ray: Results reviewed. Medications: These were reviewed. Labs: These were reviewed. 2D echocardiogram results were reviewed with the patient. Patient questions answered. Treatment/care plan: This was reviewed and discussed with involved personnel in the care of this patient and patient. Atrial flutter with rapid ventricular response: This is paroxysmal. Patient currently on a stable regimen. Patient to report any further problems. Cellulitis of the left leg: Continue antibiotic therapy. Urinary tract infection: Continue antibiotic therapy. Obesity: Patient has been encouraged in weight loss. Obstructive sleep apnea: Discussed association of atrial flutter fibrillation with obstructive sleep apnea. Patient encouraged to have her bring CPAP machine and use it on a nightly basis while in the hospital. - Time Time with patient: 15-25 minutes - CODE STATUS was discussed, patient remains full code. Surrogate decision-maker unchanged. Multiple medical problems were addressed. More than 50% of the time spent coordinating care, discussing management plans with involved caregivers. Management plans discussed with involved personnels. Medical decision making was of moderate to high complexity , patient's has multiple comorbidities. Medications reviewed and adjusted accordingly: Yes
--- NOTE | 2016-10-31 15:46 | PDOC PROGRESS REPORT ---
Subjective Progress Note for:: 10/31/16 Subjective:: Patient is seen on morning rounds. She is resting comfortably in bed. She denies any shortness of breath, palpitations or dyspnea. She denies any chest pain. She denies any cough at the present time. She states she feels improved from when she came in. She does complain of mild discomfort in the left lower extremity which remains erythemic and warm to the touch. She feels it looks improved however did yesterday morning. She denies any fevers or chills overnight. Physical Exam Vital Signs: Temp Pulse Resp BP Pulse Ox 98.3 F 77 16 123/62 96 10/31/16 10:56 10/31/16 13:47 10/31/16 10:56 10/31/16 10:56 10/31/16 10:56 Intake & Output 10/30/16 10/31/16 11/01/16 06:59 06:59 06:59 Intake Total 2200 2545 700 Balance 2200 2545 700 Weight 123.1 kg 126.4 kg 126.4 kg General appearance: PRESENT: no acute distress, morbidly obese, well-developed, well-nourished Head exam: PRESENT: atraumatic, normocephalic Eye exam: PRESENT: conjunctiva pink, EOMI, PERRLA. ABSENT: scleral icterus Ear exam: PRESENT: normal external ear exam Mouth exam: PRESENT: moist, tongue midline Neck exam: ABSENT: carotid bruit, JVD, lymphadenopathy, thyromegaly Respiratory exam: PRESENT: clear to auscultation [place]. ABSENT: rales, rhonchi, wheezes Cardiovascular exam: PRESENT: irregular rhythm, +S1, +S2 Pulses: PRESENT: normal dorsalis pedis pul Vascular exam: PRESENT: normal capillary refill GI/Abdominal exam: PRESENT: normal bowel sounds, soft. ABSENT: distended, guarding, mass, organolmegaly, rebound, tenderness Rectal exam: PRESENT: deferred Extremities exam: PRESENT: calf tenderness, tenderness, +2 edema Musculoskeletal exam: PRESENT: ambulatory, full ROM, tenderness - left lower extremity to knee Neurological exam: PRESENT: alert, awake, oriented to person, oriented to place , oriented to time, oriented to situation, CN II-XII grossly intact. ABSENT: motor sensory deficit Psychiatric exam: PRESENT: appropriate affect, normal mood. ABSENT: homicidal ideation, suicidal ideation Skin exam: PRESENT: dry, intact, warm. ABSENT: cyanosis, rash Results Laboratory Results: 10/30/16 06:00 10/31/16 09:45 10/31/16 09:45 Creatinine 0.53 Est GFR ( Amer) > 60 Est GFR (Non-Af Amer) > 60 10/29/16 10/29/16 12:08 17:41 Troponin I 0.069 0.057 Impressions: Chest X-Ray 10/28/16 20:39 IMPRESSION: NO ACUTE RADIOGRAPHIC FINDING IN THE CHEST. Lung Scan-VQ NM 10/29/16 05:15 IMPRESSION: NORMAL VENTILATION-PERFUSION LUNG SCAN. NEGATIVE FOR PULMONARY EMBOLI. Assessment & Plan - Diagnosis (1) Cellulitis of leg, left Is this a current diagnosis for this admission?: YesPlan: Improved from yesterday. Cultures pending will continue current IV antibitiotics (2) Atrial flutter with rapid ventricular response Is this a current diagnosis for this admission?: YesPlan: Patient is rate controlled with IV diltiazem. (3) Hypokalemia Is this a current diagnosis for this admission?: YesPlan: Replete as needed (4) New onset atrial flutter Is this a current diagnosis for this admission?: YesPlan: Cardiology is following she is on diltiazem (5) ARNULFO (obstructive sleep apnea) Is this a current diagnosis for this admission?: YesPlan: CPAP at night (6) UTI (urinary tract infection) Qualifiers: Urinary tract infection type: site unspecified Is this a current diagnosis for this admission?: YesPlan: Continue antibiotics culture pending (7) HLD (hyperlipidemia) Qualifiers: Hyperlipidemia type: unspecified Qualified Code(s): E78.5 - Hyperlipidemia, unspecified Is this a current diagnosis for this admission?: YesPlan: Continue statin (8) Hypothyroid Qualifiers: Hypothyroidism type: unspecified Qualified Code(s): E03.9 - Hypothyroidism, unspecified Is this a current diagnosis for this admission?: YesPlan: Continue synthroid (9) Morbid obesity with BMI of 40.0-44.9, adult Is this a current diagnosis for this admission?: Yes (10) Osteoarthritis Qualifiers: Osteoarthritis location: unspecified site Osteoarthritis type: unspecified Qualified Code(s): M19.90 - Unspecified osteoarthritis, unspecified site Is this a current diagnosis for this admission?: Yes (11) SIRS (systemic inflammatory response syndrome) Is this a current diagnosis for this admission?: YesPlan: Patient with low-grade fever on admission, tachycardia and confusion. This improved with IV fluids and IV antibiotics. She was found to have a urinary tract infection as well as left lower leg extensive cellulitis. - Time Time Spent with patient: 25-34 minutes Medications reviewed and adjusted accordingly: Yes Anticipated discharge: Home with Homehealth
[2016-10-31] MEDS ORDERED: LEVOFLOXACIN 750 MG TABLET PO SCH (18:00)
[2016-10-31] MEDS: VANCOMYCIN HCL 1,000 MG in DEXTROSE 5%-WATER 250 ML IV SCH (19:42)
[2016-11-01] MEDS: VANCOMYCIN HCL 1,000 MG in DEXTROSE 5%-WATER 250 ML IV SCH (02:22)
[2016-11-01 05:49] LABS: ABSOLUTE EOSINOPHILS # (AUTO) 0.1 10^3/uL (0.0-0.6); ABSOLUTE LYMPHOCYTES (AUTO) 0.8 10^3/uL (0.5-4.7); ABSOLUTE MONOCYTES (AUTO) 0.6 10^3/uL (0.1-1.4); BASOPHILS % (AUTO) 0.4 % (0-2); EOSINOPHILS % (AUTO) 2.1 % (0-6); HEMATOCRIT 36.2 % (36.0-47.0); HEMOGLOBIN 12.1 g/dL (12.0-15.5); HGB HCT DIFFERENCE 0.1; LYMPHOCYTES % (AUTO) 18.5 % (13-45); MEAN CORPUSCULAR HEMOGLOBIN 30.5 pg (27.0-33.4); MEAN CORPUSCULAR HGB CONC 33.5 g/dL (32.0-36.0); MEAN CORPUSCULAR VOLUME 91 fl (80-97); MONOCYTES % (AUTO) 14.1 % (3-13); RED BLOOD COUNT 3.97 10^6/uL (3.72-5.28); RED CELL DISTRIBUTION WIDTH 14.2 % (11.5-14.0); SEGMENTED NEUTROPHILS % (AUTO) 64.9 % (42-78); WHITE BLOOD COUNT 4.6 10^3/uL (4.0-10.5)
[2016-11-01] MEDS: LEVOTHYROXINE SODIUM 0.1 MG TABLET PO SCH (09:56)
[2016-11-01] MEDS: VENLAFAXINE HCL 75 MG CAP.SR.24H PO SCH (09:56)
[2016-11-01] MEDS: DOCUSATE SODIUM 100 MG CAPSULE PO SCH (09:57)
[2016-11-01] MEDS: DILTIAZEM HCL 120 MG CAP.SR.24H PO SCH (09:57)
[2016-11-01] MEDS: MAGNESIUM OXIDE 400 MG TABLET PO SCH (09:57)
[2016-11-01] MEDS: APIXABAN 5 MG TABLET PO SCH (09:58)
[2016-11-01] MEDS: TRIAMCINOLONE ACETONIDE 0.5% CREAM 15 GM TP SCH (09:58)
[2016-11-01] MEDS ORDERED: LACTOBACILLUS ACIDOPHILUS 250 MG TAB PO SCH (10:00)
[2016-11-01] MEDS ORDERED: DOXYCYCLINE HYCLATE 100 MG TABLET PO SCH (10:00)
[2016-11-01 11:47] VITALS: BP 141/57
--- NOTE | 2016-11-01 14:43 | PROGRESS NOTE E ---
Progress Note NAME: PASCUAL BREWSTER : 1950 AGE: 65Y DATE: 11/01/2016 ROOM: 325 SUBJECTIVE: Note that the patient denies any chest pain or discomfort. There is no PND or orthopnea. Leg edema is the same. The left lower leg cellulitis is much better. There is no recurrence of atrial flutter. The patient remains in sinus rhythm. There is no bleeding on Eliquis. There is no TIA or CVA symptoms. The patient denies any palpitations, dizziness, near syncope, or syncope. OBJECTIVE: GENERAL: The patient is morbidly obese, but well-groomed in no acute distress. VITAL SIGNS: She is afebrile with a temperature of 98.6 degrees Fahrenheit, pulse is 80 beats per minute, blood pressure 141/57, respirations are 18 per minute, and O2 saturation is 100% on room air. Note that the patient is wearing CPAP at night. HEENT: Head is atraumatic, normocephalic. Eyes: Pupils are equal, round, regular, reactive to light and accommodation. Extraocular movements normal. There is no conjunctivae or pallor. There is no scleral icterus. ENT: Tympanic membranes are intact. The external auditory canals are clear. Nose: There is no deviated septum. Mouth: Mucous membranes of the mouth are moist. Tongue is moist. There is no exudate, no bleeding. Throat: There is no redness of the oropharynx. There is no exudate. NECK: Supple. There is no JVD. Carotids are equal without any bruits. There is no lymphadenopathy. There is no goiter. Trachea is central. LUNGS: Clear to auscultation and palpation with no evidence of usage of accessory muscles of respirations. There is no chest wall tenderness. HEART: S1 and S2 are heard. There is no S3 gallop. There is no S4 gallop. There is a systolic murmur in the left sternal border on the apex. There is no rub. There are no gallops. ABDOMEN: Soft, obese, nontender. There is no hepatosplenomegaly. Bowel sounds are well heard. There are no masses appreciated. There is no rebound, guarding, or rigidity. EXTREMITIES: Femorals are deep and femorals are diminished. There are no femoral bruits. Leg pulses are very much diminished. There is 1+ edema bilaterally and evidence of left lower leg cellulitis, which seems to be slightly better, but still is red and warm to touch. There is no calf tenderness. There is no cyanosis or clubbing. There is no DVT. CENTRAL NERVOUS SYSTEM: The patient is conscious, awake, alert, oriented x3 with no focal deficits. PSYCHIATRIC: The patient's judgment and insight are intact. Her affect is normal. MUSCULOSKELETAL: There is no significant joint swelling. The patient's intake and output is not accurate. LABORATORY: The patient's sodium is 142, potassium 3.7, chloride 108, CO2 is 25. The patient's BUN is 8, creatinine 0.6. Her GFR is greater than 60. Calcium is 8.4. Magnesium is 2.0. These labs were done on 10/30/2016. The patient's white count is 4600, hemoglobin 12.1, hematocrit 36.2, platelet count is 196,000. IMPRESSION: 1. PAROXYSMAL ATRIAL FLUTTER, AT PRESENT IN SINUS RHYTHM. The patient is on Eliquis for anticoagulation and also the patient is on Cardizem 120 mg p.o. q.12 h. 2. CELLULITIS OF LEFT LOWER LEG. This seems to be slightly improved, but still there is redness. Continue antibiotics. 3. URINARY TRACT INFECTION. Continue antibiotics. 4. MORBID OBESITY WITH A BODY MASS INDEX OF 44.8 kilograms per meter squared. 5. OBSTRUCTIVE SLEEP APNEA. The patient is wearing CPAP at night. Patient agrees to continue to do so. 6. DEPRESSION. 7. HYPOTHYROIDISM. RECOMMENDATIONS: As mentioned earlier, continue the patient's thyroid replacement. Continue the Eliquis and diltiazem. Consider changing the diltiazem to the *------*, since diltiazem can cause leg swelling. Continue readjustment of thyroid. Continue *------* for depression. Continue CPAP at night. Note 25 minutes spent on the patient, with more than 50% of the time spent on direct patient care, also coordinating care with other physicians on the case, and also medications were reviewed. Note that the patient's TSH on 10/29/2016 was 0.92. Continue replacement through [facility]. Note this case involved moderately complex medical decision-making. We will discuss with other physicians. We will follow with you. DICTATING PHYSICIAN: VINNY MAHER M.D. [id number] PHY#: [id number] ID: [id number] JOB#: [id number] ACCT: [id number] cc: >
--- NOTE | 2016-11-01 15:29 | PDOC DISCHARGE SUMMARY ---
General - Admit/Disc Date/PCP Admission Date/Primary Care Provider: 10/29/16 04:35 Discharge Date: 11/01/16 - Discharge Diagnosis (1) Cellulitis of leg, left Is this a current diagnosis for this admission?: YesSummary: Improving. Blood cultures x 2 are negative. Will discharge on Doxycyline 100 mg po bid x 10 days. Follow up with primary care provider in one week (2) Atrial flutter with rapid ventricular response Is this a current diagnosis for this admission?: YesSummary: Resolved with Diltiazem. She will be discharged on diltiazem and eliquis. Follow up with cardiology at [facility] per patient's request (3) Hypokalemia Is this a current diagnosis for this admission?: YesSummary: Repleted and resolved (4) New onset atrial flutter Is this a current diagnosis for this admission?: Yes (5) ARNULFO (obstructive sleep apnea) Is this a current diagnosis for this admission?: YesSummary: Needs sleep study post discharge (6) UTI (urinary tract infection) Is this a current diagnosis for this admission?: Yes (7) HLD (hyperlipidemia) Is this a current diagnosis for this admission?: Yes (8) Hypothyroid Is this a current diagnosis for this admission?: YesSummary: Continue synthroid (9) Morbid obesity with BMI of 40.0-44.9, adult Is this a current diagnosis for this admission?: Yes (10) Osteoarthritis Is this a current diagnosis for this admission?: YesSummary: Continue celebrex (11) SIRS (systemic inflammatory response syndrome) Is this a current diagnosis for this admission?: YesSummary: Resolved - Additional Information Resuscitation Status: Full Code Discharge Diet: Regular Discharge Activity: Activity As Tolerated, Balance Activity w/Rest, Keep Legs Elevated Home Medications: Celecoxib [Celebrex 200 mg Capsule] 200 mg PO Q12 10/29/16 Etodolac [Lodine] 400 mg PO Q8HP PRN 10/29/16 Levothyroxine Sodium [Synthroid] 100 mcg PO QAM 10/29/16 Tofacitinib Citrate [Xeljanz] 5 mg PO BID 10/29/16 Venlafaxine HCl ER [Effexor Xr 75 mg Cap.sr] 225 mg PO DAILY 10/29/16 Acetaminophen [Tylenol 325 mg Tablet] 650 mg PO Q4HP PRN tablet 11/01/16 Apixaban [Eliquis 5 mg Tablet] 5 mg PO BID #60 tablet 11/01/16 Diltiazem HCl [Cardizem Cd 120 mg Capsule] 120 mg PO Q12 #60 cap.sr.24h Doxycycline Hyclate [Vibramycin 100 mg Tablet] 100 mg PO Q12 #20 tablet Oxycodone HCl [Oxy-Ir 5 mg Tablet] 5 mg PO Q8HP PRN #20 tablet 11/01/16 Triamcinolone Acetonide [Aristocort 0.5% Cream 15 gm] 1 applic TP TID tube History of Present Illness Patient complains of: Altered mental status and near syncope History of Present Illness: 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 Has not felt well for the past 36 hours or so. Slept most of the day on Friday. No nausea vomiting, diarrhea or dysuria. It began having subjective fever and chills. She walked into her bathroom, he felt as though she was going to pass out. She was found slumped next to the toilet, still conscious but quite confused. Initial Elan Coma Scale of 14 by EMS, but patient quite altered, oriented only to person. Improvement with IV fluids and antipyretics. Malodorous urine. Similar presentations in the past with sepsis secondary to urinary tract infection. Was noted on examination to have circumferential cellulitis involving her left lower leg. Denies any trauma. Very mildly tender to palpation. Patient stated she noted redness only earlier in the evening on the . No prior episodes of cellulitis. No history of atrial flutter, atrial fibrillation, or rapid irregular heartbeat. No history of pulmonary embolus or DVT. No recent long trip with prolonged inactivity, or unusual lower extremity swelling or tenderness. No chest pain. Of interest, her unverified medication list does include Xarelto, but patient states she has never taken this medication. As I was examining the patient, she began having episodes of paroxysmal atrial flutter with rapid ventricular response, called on EKG, with rates typically in the mid 150s but occasionally in the 160 range. Lasted only a minute or so and then spontaneously reverted back to mild sinus tachycardia. Patient has been discussed with emergency room physician who evaluated the patient. . Hospital Course Hospital Course: Patient was admitted to the [facility] on telemetry. During the first hospital night she was noted to be in rapid atrial flutter with a heart rate of 140. She was bolused with IV diltiazem and then started on infusion. Cardiology was consulted, Dr. Barbosa, the patient in consult. Patient converted to normal sinus rhythm during the night. Patient was started on oral Cardizem the following day and the drip was discontinued. Urine culture failed to grow any specific bacteria. IV broad-spectrum antibiotics were continued for 72 hours. Blood cultures remained negative. Left lower extremity erythema gradually improved. Her confusion resolved after first hospital day. Low-grade fever resolved. Today she was transitioned to oral antibiotics in preparation for discharge. She has requested follow-up with cardiology Dariela Hoffmann,patient's sees a insurance manager there. She will be discharged home on new prescription for diltiazem and Eliquis and follow-up cardiology with an event monitor. She often will need sleep study at some point posthospitalization. Physical Exam Vital Signs: Temp Pulse Resp BP Pulse Ox 98.6 F 80 18 141/57 H 100 11/01/16 11:44 11/01/16 11:44 11/01/16 11:44 11/01/16 11:44 11/01/16 11:44 Intake & Output 10/31/16 11/01/16 11/02/16 06:59 06:59 06:59 Intake Total 4386 2072 Balance 2545 2072 Weight 126.4 kg 126 kg General appearance: PRESENT: no acute distress, morbidly obese, well-developed, well-nourished Head exam: PRESENT: atraumatic, normocephalic Eye exam: PRESENT: conjunctival injection Ear exam: PRESENT: normal external ear exam Mouth exam: PRESENT: moist, tongue midline Neck exam: ABSENT: carotid bruit, JVD, lymphadenopathy, thyromegaly Respiratory exam: PRESENT: clear to auscultation [place]. ABSENT: rales, rhonchi, wheezes Cardiovascular exam: PRESENT: RRR. ABSENT: diastolic murmur, rubs, systolic murmur Pulses: PRESENT: normal dorsalis pedis pul Vascular exam: PRESENT: normal capillary refill GI/Abdominal exam: PRESENT: normal bowel sounds, soft. ABSENT: distended, guarding, mass, organolmegaly, rebound, tenderness Rectal exam: PRESENT: deferred Extremities exam: PRESENT: calf tenderness, +2 edema - left lower extremity Neurological exam: PRESENT: alert, awake, oriented to person, oriented to place , oriented to time, oriented to situation, CN II-XII grossly intact. ABSENT: motor sensory deficit Psychiatric exam: PRESENT: appropriate affect, normal mood. ABSENT: homicidal ideation, suicidal ideation Skin exam: PRESENT: erythema, other - anterior left lower extremity from ankle to knee Results Laboratory Results: 11/01/16 05:00 10/31/16 09:45 11/01/16 05:00 WBC 4.6 RBC 3.97 Hgb 12.1 Hct 36.2 MCV 91 MCH 30.5 MCHC 33.5 RDW 14.2 H Plt Count 196 Seg Neutrophils % 64.9 Lymphocytes % 18.5 Monocytes % 14.1 H Eosinophils % 2.1 Basophils % 0.4 Absolute Neutrophils 3.0 Absolute Lymphocytes 0.8 Absolute Monocytes 0.6 Absolute Eosinophils 0.1 Absolute Basophils 0.0 10/29/16 10/29/16 12:08 17:41 Troponin I 0.069 0.057 Impressions: Chest X-Ray 10/28/16 20:39 IMPRESSION: NO ACUTE RADIOGRAPHIC FINDING IN THE CHEST. Lung Scan-VQ NM 10/29/16 05:15 IMPRESSION: NORMAL VENTILATION-PERFUSION LUNG SCAN. NEGATIVE FOR PULMONARY EMBOLI. Qualifiers PATEINT BEING DISCHARGED WITH ANY OF THE FOLLOWING DIAGNOSIS?: No Plan Discharge Plan: Home with Time Spent: Less than 30 Minutes
== END 2016-11-01 13:30 | disposition home or self-care (01) | DRG 309 ==
LOC: ER 20:31 → UNDOADMIN 10-29 01:23 → EH 10-29 01:23 → 3W 10-29 16:31
PROVIDERS: ADMIT Family Medicine; ATTEND Family Medicine
PROC: 5A09457 Assistance with Respiratory Ventilation, 24-96 Consecutive Hours, Continuous Positive Airway Pressure (ICD-10-PCS; principal; 2016-10-29)
DX: I48.4 Atypical atrial flutter (principal); N39.0 Urinary tract infection, site not specified; L03.116 Cellulitis of left lower limb; Z68.41 Body mass index [BMI] 40.0-44.9, adult; E87.6 Hypokalemia; G47.33 Obstructive sleep apnea (adult) (pediatric); E78.5 Hyperlipidemia, unspecified; E03.9 Hypothyroidism, unspecified; M19.90 Unspecified osteoarthritis, unspecified site; M06.9 Rheumatoid arthritis, unspecified; F32.9 Major depressive disorder, single episode, unspecified; I10 Essential (primary) hypertension; D69.6 Thrombocytopenia, unspecified; E78.00 Pure hypercholesterolemia, unspecified; E11.9 Type 2 diabetes mellitus without complications; E66.01 Morbid (severe) obesity due to excess calories; Z91.14 Patient's other noncompliance with medication regimen; Z79.899 Other long term (current) drug therapy; Z85.3 Personal history of malignant neoplasm of breast; Z90.12 Acquired absence of left breast and nipple; Z88.2 Allergy status to sulfonamides; Z88.1 Allergy status to other antibiotic agents; Z88.8 Allergy status to other drugs, medicaments and biological substances; Z88.3 Allergy status to other anti-infective agents; Z82.49 Family history of ischemic heart disease and other diseases of the circulatory system
CPT/HCPCS: 36415; 71010; 78582; 80048; 80053; 80061; 80202; 81001; 82565; 82803; 83605; 83735; 84443; 84484; 85025; 85379; 85610; 85730; 87040; 87086; 93005; 93010; 93306; 96365; 99285; A9540; A9567; J0692; J1644; J1956; J3370; J3475; J3490; J7030; J7060; Q9969

== ENCOUNTER 2017-03-26 07:15 | Day surgery (SDC) | payer MEDICARE, OTHER ==
[~2017-03-26 07:15] MED LIST: KETOROLAC TROMETHAMINE 0.45% 4 DROP/0.4 ML DROPERETTE OS PRN
[2017-03-26] MEDS: CYCLOPENTOLATE 0.2%/PHENYLEPHRINE 1% OPH SOLN 2 ML OS PRN ×3 (07:45→08:05)
[2017-03-26] MEDS: TROPICAMIDE 1% OPH SOLN 3 ML OS PRN ×3 (07:45→08:05)
[2017-03-26] MEDS: TETRACAINE HCL 0.5% OPH SOLN 0.6 ML DROPERETTE OS PRN ×3 (07:45→08:25)
[2017-03-26] MEDS: BESIFLOXACIN HCL 0.6% OPH SUSP 5 ML BOTTLE OS PRN ×4 (07:45→08:48)
[2017-03-26] MEDS: LIDOCAINE 1% INJ-PF (10 MG/ML) 30 ML SDV ONE ×2 (08:31)
[2017-03-26] MEDS: CHONDR SU A NA/HYALUR INTRAOC KIT (SURGICARE) ONE ×2 (08:31)
[2017-03-26] MEDS: EPINEPHRINE INJ/PF 1 MG/1 ML AMPULE ONE ×2 (08:31)
[2017-03-26] MEDS ORDERED: CHONDR SU A NA/HYALUR SOD 0.5 ML DISP.SYRIN ONE (08:41)
[2017-03-26] MEDS: TOBRAMYCIN SULFATE/DEXAMETH OPH OINTMENT 3.5 GM ONE ×2 (08:48)
[2017-03-26] MEDS ORDERED: MIDAZOLAM 2 MG/2 ML INJ ONE (09:53)
== END 2017-03-26 09:24 | disposition home or self-care (01) ==
LOC: SC 07:15
PROVIDERS: ATTEND Ophthalmology
PROC: 089330Z Drainage of Left Anterior Chamber with Drainage Device, Percutaneous Approach (ICD-10-PCS; 2017-03-26)
PROC: 08RK3JZ Replacement of Left Lens with Synthetic Substitute, Percutaneous Approach (ICD-10-PCS; principal; 2017-03-26 13:00)
DX: H25.12 Age-related nuclear cataract, left eye (principal); H40.1131 Primary open-angle glaucoma, bilateral, mild stage; M19.90 Unspecified osteoarthritis, unspecified site; E78.00 Pure hypercholesterolemia, unspecified; E03.9 Hypothyroidism, unspecified; M06.9 Rheumatoid arthritis, unspecified; I48.91 Unspecified atrial fibrillation; G47.33 Obstructive sleep apnea (adult) (pediatric); E66.9 Obesity, unspecified; Z79.899 Other long term (current) drug therapy; Z79.1 Long term (current) use of non-steroidal anti-inflammatories (NSAID); Z88.8 Allergy status to other drugs, medicaments and biological substances; Z88.1 Allergy status to other antibiotic agents; Z85.3 Personal history of malignant neoplasm of breast; Z68.41 Body mass index [BMI] 40.0-44.9, adult
CPT/HCPCS: 0191T; 66984; 142; C1783; J0171; J2250; J3490; V2787

== ENCOUNTER 2017-04-09 09:35 | Day surgery (SDC) | payer MEDICARE, OTHER ==
[~2017-04-09 09:35] MED LIST changes: +CHONDR SU A NA/HYALUR INTRAOC KIT (SURGICARE) ONE; +EPINEPHRINE INJ/PF 1 MG/1 ML AMPULE ONE; -KETOROLAC TROMETHAMINE 0.45% 4 DROP/0.4 ML DROPERETTE OS PRN; +LIDOCAINE 1% INJ-PF (10 MG/ML) 30 ML SDV ONE; +TOBRAMYCIN SULFATE/DEXAMETH OPH OINTMENT 3.5 GM ONE
[2017-04-09] MEDS: BESIFLOXACIN HCL 0.6% OPH SUSP 5 ML BOTTLE OD PRN ×4 (10:10→10:51)
[2017-04-09] MEDS: TROPICAMIDE 1% OPH SOLN 3 ML OD PRN ×4 (10:10→10:30)
[2017-04-09] MEDS: CYCLOPENTOLATE 0.2%/PHENYLEPHRINE 1% OPH SOLN 2 ML OD PRN ×4 (10:10→10:30)
[2017-04-09] MEDS: TETRACAINE HCL 0.5% OPH SOLN 0.6 ML DROPERETTE OD PRN ×4 (10:11→10:34)
[2017-04-09] MEDS: KETOROLAC TROMETHAMINE 0.45% 4 DROP/0.4 ML DROPERETTE OD PRN ×2 (10:11→10:12)
[2017-04-09] MEDS ORDERED: MIDAZOLAM 2 MG/2 ML INJ ONE ×2 (10:16→10:18)
[2017-04-09] MEDS ORDERED: ONDANSETRON HCL INJ/PF 4 MG/2 ML SDV ONE (10:24)
== END 2017-04-09 11:30 | disposition home or self-care (01) ==
LOC: SC 09:35
PROVIDERS: ATTEND Ophthalmology
PROC: 08RJ3JZ Replacement of Right Lens with Synthetic Substitute, Percutaneous Approach (ICD-10-PCS; 2017-04-09)
PROC: 089230Z Drainage of Right Anterior Chamber with Drainage Device, Percutaneous Approach (ICD-10-PCS; principal; 2017-04-09 10:30)
DX: H25.11 Age-related nuclear cataract, right eye (principal); H40.1111 Primary open-angle glaucoma, right eye, mild stage; Z98.42 Cataract extraction status, left eye; M19.90 Unspecified osteoarthritis, unspecified site; E78.00 Pure hypercholesterolemia, unspecified; E03.9 Hypothyroidism, unspecified; M06.9 Rheumatoid arthritis, unspecified; I48.91 Unspecified atrial fibrillation; Z79.1 Long term (current) use of non-steroidal anti-inflammatories (NSAID); Z79.899 Other long term (current) drug therapy; Z85.3 Personal history of malignant neoplasm of breast; Z88.8 Allergy status to other drugs, medicaments and biological substances
CPT/HCPCS: 0191T; 66984; 142; C1783; J0171; J2250; J2405; J3490; V2632